=== PATIENT | female | born 1995 ===

== ENCOUNTER 2018-02-15 22:03 | Emergency (ER) | payer OTHER ==
[2018-02-15 22:55] VITALS: BP 141/90; PULSE 92; RESP 18; TEMP 98.2; O2SAT 99
--- NOTE | 2018-02-16 00:16 | ED PDOC ---
HPI: Psych/Substance Abuse Time Seen by Provider: 02/15/18 23:38 Chief Complaint (Nursing): Psychiatric Evaluation History Per: Patient Additional Complaint(s): Pt. states yesterday she found out her aunt was diagnosed a "mass" and today her mother informed her that her grandmother will now be wheelchair bound. Also states she has been studying for mid-terms and has felt "helpless" and overwhelmed. Reports a hx of depression and states she used to take meds but has not taken any meds in several months. Further reports she was admitted into the hospital for depression when she was in high school. Denies SI/HI, hallucinations, chest pain, palpitations. Past Medical History Reviewed: Historical Data, Nursing Documentation, Vital Signs Vital Signs: Last Vital Signs Temp 98.2 F 02/15/18 22:52 Pulse 92 H 02/15/18 22:52 Resp 18 02/15/18 22:52 BP 141/90 02/15/18 22:52 Pulse Ox 99 02/15/18 22:52 - Family History Family History: States: No Known Family Hx - Home Medications Home Medications: Ambulatory Orders Medication Instructions Recorded Spironolactone [Aldactone] 25 mg PO BID 02/16/18 - Allergies Allergies/Adverse Reactions: Allergies Allergy/AdvReac Type Severity Reaction Status Date / Time Penicillins Allergy RASH Verified 02/15/18 22:55 Review of Systems ROS Statement: Except As Marked, All Systems Reviewed And Found Negative Physical Exam - Physical Exam Appears: Positive for: Well, Non-toxic, No Acute Distress Skin: Positive for: Normal Color, Warm. Negative for: Rash Eye Exam: Positive for: Normal appearance ENT: Positive for: Normal ENT Inspection Neck: Positive for: Normal, Painless ROM Cardiovascular/Chest: Positive for: Regular Rate, Rhythm. Negative for: Tachycardia Respiratory: Positive for: CNT, Normal Breath Sounds Gastrointestinal/Abdominal: Positive for: Normal Exam, Soft. Negative for: Tenderness Neurologic/Psych: Positive for: Alert, Oriented, Mood/Affect (calm, cooperative) - ECG O2 Sat by Pulse Oximetry: 99 - Progress ED Course And Treament: Pt. evaluated by Alivia, community organization worker, who spoke with Dr. Stephens and cleared pt. for discharge. Outpt. f/u arranged by Alivia. Disposition - Clinical Impression Clinical Impression: Depression - Patient ED Disposition Is Patient to be Admitted: No - Disposition Disposition: Routine/Home Disposition Time: 00:34 Condition: STABLE Instructions: Depression, Adult (DC) Forms: [employer] (Argentine), [facility] ED School/Work Excuse Print Language: HEBREW
== END 2018-02-16 00:53 | disposition home or self-care (01) ==
LOC: H.ER 22:03
DX: F32.9 Major depressive disorder, single episode, unspecified (principal); Z88.0 Allergy status to penicillin

== ENCOUNTER 2018-07-13 18:10 | Emergency (ER) | payer OTHER ==
[2018-07-13 18:23] VITALS: BP 123/84; PULSE 86; RESP 19; O2SAT 98
--- NOTE | 2018-07-13 18:47 | ED PDOC ---
Lower Extremity Pain/Injury Time Seen by Provider: 07/13/18 18:25 Chief Complaint (Nursing): Lower Extremity Problem/Injury Chief Complaint (Provider): Left Foot Pain History Per: Patient History/Exam Limitations: no limitations Onset/Duration Of Symptoms: Days Current Symptoms Are (Timing): Still Present Additional Complaint(s): 22 year old female presents to the ED for an evaluation of left foot pain. Patient states she tripped yesterday and was seen by the nurse on campus. She was told that if the pain persisted she should visit the ED. Patient denies any prior fracture. PMD: No Family Provider Past Medical History Reviewed: Historical Data, Nursing Documentation, Vital Signs Vital Signs: Last Vital Signs Temp Pulse 86 07/13/18 18:20 Resp 19 07/13/18 18:20 BP 123/84 07/13/18 18:20 Pulse Ox 98 07/13/18 18:20 - Medical History PMH: Denies: Diabetes, Hepatitis, HIV, HTN, Seizures, Sexually Transmitted Disease - Family History Family History: States: Unknown Family Hx - Home Medications Home Medications: Ambulatory Orders Medication Instructions Recorded Spironolactone [Aldactone] 25 mg PO BID 02/16/18 Ibuprofen [Motrin] 600 mg PO Q8 PRN #21 tab 07/13/18 - Allergies Allergies/Adverse Reactions: Allergies Allergy/AdvReac Type Severity Reaction Status Date / Time Penicillins Allergy RASH Verified 02/15/18 22:55 Review of Systems ROS Statement: Except As Marked, All Systems Reviewed And Found Negative Musculoskeletal: Positive for: Foot Pain (left) Physical Exam - Reviewed Nursing Documentation Reviewed: Yes Vital Signs Reviewed: Yes - Physical Exam Appears: Positive for: Non-toxic, No Acute Distress Head Exam: Positive for: ATRAUMATIC, NORMAL INSPECTION, NORMOCEPHALIC Skin: Positive for: Normal Color, Warm, Dry Eye Exam: Positive for: Normal appearance Extremity: Positive for: Tenderness (moderate pain to lateral foot pain), Other (ecchymosis). Negative for: Deformity Neurologic/Psych: Positive for: Alert, Oriented (x3). Negative for: Motor/ Sensory Deficits - ECG O2 Sat by Pulse Oximetry: 98 (RA) Pulse Ox Interpretation: Normal - Progress ED Course And Treament: XRY OF FOOT: NO FX XRY OF ANKLE: NO FX AIR CAST TO LEFT ANKLE/CRUTCH INSTRUCTIONS GIVEN. Medical Decision Making Medical Decision Making: Time: 1828 Initial Impression: left foot pain Initial Plan: --Ankle left 3 views [RAD] --foot left 3 views [RAD] --Reevaluation Scribe Attestation: Documented by Jaime Wylie, acting as a scribe for Vince Humphrey PA-C. Provider Scribe Attestation: All medical record entries made by the Scribe were at my direction and personally dictated by me. I have reviewed the chart and agree that the record accurately reflects my personal performance of the history, physical exam, medical decision making, and the department course for this patient. I have also personally directed, reviewed, and agree with the discharge instructions and disposition. Disposition - Clinical Impression Clinical Impression: Left ankle sprain - Patient ED Disposition Is Patient to be Admitted: No - Disposition Referrals: Podiatry Clinic [Outside] Disposition: Routine/Home Disposition Time: 19:01 Condition: FAIR Prescriptions: Ibuprofen [Motrin] 600 mg PO Q8 PRN #21 tab PRN Reason: Pain, Moderate (4-7) Instructions: Ankle Sprain (DC) Forms: [facility] ED School/Work Excuse
--- NOTE | 2018-07-13 18:57 | RAD ---
Date of service: 07/13/2018 PROCEDURE: Left Ankle Radiographs. HISTORY: left ankle pain COMPARISON: None FINDINGS: BONES: No acute fracture. JOINTS: Ankle mortise maintained. Talar dome intact SOFT TISSUES: Lateral malleolar soft tissue swelling. OTHER FINDINGS: None. IMPRESSION: Lateral malleolar soft tissue swelling without demonstrated fracture or dislocation.
--- NOTE | 2018-07-13 18:58 | RAD ---
Date of service: 07/13/2018 PROCEDURE: Left Foot Radiographs. HISTORY: injury COMPARISON: None. FINDINGS: BONES: No acute fracture. JOINTS: Unremarkable. SOFT TISSUES: Normal. OTHER FINDINGS: None. IMPRESSION: No demonstrated fracture or dislocation.
== END 2018-07-13 19:05 | disposition home or self-care (01) ==
LOC: H.ER 18:10
DX: S93.402A Sprain of unspecified ligament of left ankle, initial encounter (principal); W19.XXXA Unspecified fall, initial encounter; Y92.89 Other specified places as the place of occurrence of the external cause; Z88.0 Allergy status to penicillin

== ENCOUNTER 2018-12-10 18:35 | Emergency (ER) | payer OTHER ==
[2018-12-10] MEDS ORDERED: Sodium Chloride 0.9% 1,000 ML IV STA (19:47)
--- NOTE | 2018-12-10 19:56 | ED PDOC ---
HPI: Abdomen Time Seen by Provider: 12/10/18 19:10 Chief Complaint (Nursing): GI Problem Chief Complaint (Provider): GI Problem History Per: Patient History/Exam Limitations: no limitations Onset/Duration Of Symptoms: Days (x1) Current Symptoms Are (Timing): Still Present Additional Complaint(s): 23 y/o female with no significant PMHx presents to the ED for evaluation of vomiting, onset one day ago. Patient reports of developing vomiting that turned into dry heaving. Patient states vomiting/dry heaving is associated with diffuse abdominal pain, nausea and dizziness. Patient states she was able to tolerate a small amount of water that "irritated her stomach). Otherwise, patient denies fever and diarrhea. PMD: no provider Past Medical History Reviewed: Historical Data, Nursing Documentation, Vital Signs Vital Signs: Last Vital Signs Temp 98.4 F 12/10/18 18:51 Pulse 104 H 12/10/18 18:51 Resp 16 12/10/18 18:51 BP 128/89 12/10/18 18:51 Pulse Ox 98 12/10/18 18:51 - Medical History PMH: No Chronic Diseases Denies: Diabetes, Hepatitis, HIV, HTN, Seizures, Sexually Transmitted Disease - Surgical History Surgical History: No Surg Hx - Family History Family History: States: Unknown Family Hx - Home Medications Home Medications: Ambulatory Orders Medication Instructions Recorded RX: Spironolactone [Aldactone] 25 mg PO BID 02/16/18 Ibuprofen [Motrin] 600 mg PO Q8 PRN #21 tab 07/13/18 Ondansetron [Zofran] 4 mg PO Q6H PRN #5 tab 12/11/18 - Allergies Allergies/Adverse Reactions: Allergies Allergy/AdvReac Type Severity Reaction Status Date / Time Penicillins Allergy RASH Verified 12/10/18 18:49 Review of Systems ROS Statement: Except As Marked, All Systems Reviewed And Found Negative Constitutional: Negative for: Fever Gastrointestinal: Positive for: Nausea, Vomiting. Negative for: Diarrhea Neurological: Positive for: Dizziness Physical Exam - Reviewed Nursing Documentation Reviewed: Yes Vital Signs Reviewed: Yes - Physical Exam Appears: Positive for: Uncomfortable Head Exam: Positive for: ATRAUMATIC, NORMOCEPHALIC Skin: Positive for: Normal Color, Warm, Dry Eye Exam: Positive for: Normal appearance, EOMI, PERRL Neck: Positive for: Normal, Painless ROM Cardiovascular/Chest: Positive for: Regular Rate, Rhythm. Negative for: Murmur Respiratory: Positive for: Normal Breath Sounds. Negative for: Respiratory Distress Gastrointestinal/Abdominal: Positive for: Bowel Sounds, Soft, Tenderness (mild lower abdominal tenderness). Negative for: Guarding, Rebound Back: Positive for: Normal Inspection. Negative for: L CVA Tenderness, R CVA Tenderness, Vertebral Tenderness Extremity: Positive for: Normal ROM. Negative for: Deformity Neurologic/Psych: Positive for: Alert, Oriented. Negative for: Motor/Sensory Deficits - Laboratory Results Result Diagrams: 12/10/18 20:10 12/10/18 20:10 - ECG O2 Sat by Pulse Oximetry: 98 (RA) Pulse Ox Interpretation: Normal Medical Decision Making Medical Decision Making: Time: 1947 Plan: abd pain rule out gastroenteritis, uti -- CMP -- Lipase -- CBC with Differentials -- Sodium Chloride IV 999 mls/hr -- Pepcid 20 mg IVP -- Zofran Inj 4 mg IV -- Urine C&S -- Urinalysis Time: 2129 -- On re-evaluation, patient reports no improvement of symptoms. Toradol and CT Abd/Pelvis ordered. -- CT Abd/Pelvis PO & IV Contrast -- Iohexol 50 ml PO -- Toradol [address] Abd/Pelvis PO & IV Contrast FINDINGS: LUNG BASES: The lung bases appear clear. No pleural effusions are seen. LIVER: There is mild perihepatic ascites. GALLBLADDER AND BILE DUCTS: The gallbladder appears within normal limits. No radioopaque gallstones are seen. No biliary ductal dilatation is evident. PANCREAS: Unremarkable. SPLEEN: Unremarkable. ADRENAL GLANDS: Unremarkable. KIDNEYS, URETERS, AND BLADDER: Bladder is decompressed. STOMACH AND BOWEL: There is wall thickening involving the jejunum, with involved bowel loops measuring up to 3.5 centimeters in diameter. There does not appear to be associated bowel obstruction. The finding is most compatible with enteritis. Most likely would have infectious or inflammatory etiology, less likely ischemic or neoplastic. Question mild wall thickening versus underdistention involving the descending and proximal sigmoid colon. If a true finding, this could represent a mild colitis. Please correlate clinically. APPENDIX: No evidence of acute appendicitis on CT examination. PERITONEUM: There is moderate pelvic ascites which measures simple fluid density. LYMPH NODES: No lymphadenopathy is evident. VASCULATURE: No evidence of abdominal aortic aneurysm. BONES: No aggressive appearing osseous lesion. No acute osseous pathology evident. MISCELLANEOUS: The uterus appears unremarkable. IMPRESSION: 1. There is mild perihepatic ascites. 2. There is wall thickening involving the jejunum, with involved bowel loops measuring up to 3.5 centimeters in diameter. There does not appear to be associated bowel obstruction. The finding is most compatible with enteritis. Most likely would have infectious or inflammatory etiology, less likely ischemic or neoplastic. Please correlate clinically. 3. There is moderate pelvic ascites which measures simple fluid density. 4. Question mild wall thickening versus underdistention involving the descending and proximal sigmoid colon. If a true finding, this could represent a mild colitis. Please correlate clinically. 0128 Upon reevaluation, patient is medically stable for discharge with a prescription of Zofran and instructions for outpatient followup. Scribe Attestation: Documented by Jhon Pérez, acting as a scribe for Selina Weiss MD. Provider Scribe Attestation: All medical record entries made by the Scribe were at my direction and personally dictated by me. I have reviewed the chart and agree that the record accurately reflects my personal performance of the history, physical exam, medical decision making, and the department course for this patient. I have also personally directed, reviewed, and agree with the discharge instructions and disposition. Disposition - Clinical Impression Clinical Impression: Enteritis - Patient ED Disposition Is Patient to be Admitted: No - Disposition Referrals: [facility] [Outside] [facility] [Outside] Disposition: Routine/Home Disposition Time: 01:28 Condition: IMPROVED Additional Instructions: follow up with the clinic within one week return to the ED with any worsening or concerning symptoms Prescriptions: Ondansetron [Zofran] 4 mg PO Q6H PRN #5 tab PRN Reason: Nausea/Vomiting Instructions: Viral Gastroenteritis, Adult (DC) Forms: [employer] (Persian), [facility] ED School/Work Excuse
[2018-12-10 20:15] LABS: BASO # 0.1 K/uL (0.0-0.2); BASO % 0.6 % (0.0-2.0); HEMOGLOBIN 13.2 g/dL (12.0-16.0); LYMPH # 1.9 K/uL (1.0-4.3); LYMPH % 17.7 % (20.0-40.0); MEAN CELL VOLUME 78.7 fl (81.0-99.0); MEAN CORPUSCULAR HEMOGLOBIN 25.6 pg (27.0-31.0); MEAN CORPUSCULAR HGB CONC 32.5 g/dL (33.0-37.0); MEAN PLATELET VOLUME 8.2 fl (7.2-11.7); MONO # 0.5 K/uL (0.0-0.8); MONO % 4.6 % (0.0-10.0); NEUT # 8.4 K/uL (1.8-7.0); NEUT % 77.1 % (50.0-75.0); RBC 5.17 Mil/uL (3.80-5.20); WHITE BLOOD COUNT 10.8 K/uL (4.8-10.8)
[2018-12-10 20:19] LABS: SQUAMOUS EPITHIAL 5 /hpf (0-5); URINE BACTERIA RARE (<OCC); URINE BILIRUBIN NEGATIVE (NEGATIVE); URINE BLOOD NEGATIVE (NEGATIVE); URINE CLARITY CLOUDY (Clear); URINE COLOR YELLOW (YELLOW); URINE GLUCOSE (UA) NEG (NEGATIVE); URINE LEUKOCYTE ESTERASE NEG Leu/uL (Negative); URINE PROTEIN 30 mg/dL (NEGATIVE)
[2018-12-10 20:26] LABS: ALB/GLOB RATIO 1.1 (1.0-2.1); ALT/SGPT 23 U/L (9-52); AST/SGOT 18 U/L (14-36); BLOOD UREA NITROGEN 9 mg/dl (7-17); CALCIUM 9.3 mg/dL (8.4-10.2); GFR NON-AFRICAN AMERICAN > 60; LIPASE 23 U/L (23-300)
[2018-12-10] MEDS ORDERED: Iohexol 240 (50 ml) PO ONE (21:30)
[2018-12-10] MEDS ORDERED: Iohexol 240 (50 ml) ONE (21:49)
[2018-12-10] MEDS ORDERED: Iohexol 300 100 ML IJ ONE (23:20)
[2018-12-10] MEDS ORDERED: Sodium Chloride 0.9% 50 ML IV ONE (23:21)
[2018-12-11 01:48] VITALS: BP 135/86; PULSE 83; RESP 18; TEMP 97.9
[2018-12-11 05:16] VITALS: O2SAT 98
--- NOTE | 2018-12-11 10:03 | CT ---
Date of service: 12/10/2018 PROCEDURE: CT Abdomen and Pelvis with contrast HISTORY: abd pain COMPARISON: None. TECHNIQUE: Following oral and intravenous contrast administration, a CT examination of the abdomen and pelvis was performed from the domes of the diaphragms to the symphysis pubis with reformatted datasets provided not only axial but also sagittal and coronal series. Contrast dose: Omnipaque 300, 90 cc Radiation dose: Total exam DLP = 606.39 mGy-cm. This CT exam was performed using one or more of the following dose reduction techniques: Automated exposure control, adjustment of the mA and/or kV according to patient size, and/or use of iterative reconstruction technique. FINDINGS: LOWER THORAX: Unremarkable. LIVER: Trace perihepatic ascites appreciate with liver otherwise unremarkable appearing. No mass or intrahepatic biliary dilatation is identified. GALLBLADDER AND BILE DUCTS: Unremarkable. PANCREAS: Unremarkable. No gross lesion or ductal dilatation. SPLEEN: Unremarkable. ADRENALS: Unremarkable. No mass. KIDNEYS AND URETERS: Unremarkable. No hydronephrosis. No solid mass. VASCULATURE: Unremarkable. No aortic aneurysm. No aortic atherosclerotic calcification or mural plaque present. BOWEL: No bowel obstruction is appreciate however there is marked mural thickening affecting proximal jejunum which is partially opacified by oral contrast material. Local perienteric reactive changes are appreciated and limited pelvic ascites is felt to be associated in the pattern is felt to be reflective of segmental due to jejunitis of indeterminate etiology but likely infectious or inflammatory. Clinically correlate as ischemia is not completely excluded but is not favored. Normal opacification of the superior mesenteric artery and celiac artery is appreciated. The abdominal aorta is widely patent. : Appears grossly nonfocal though distal segment is nearly completely collapsed. APPENDIX: Not clearly identified. No definite CT evidence to suggest appendicitis at this time. PERITONEUM: See bowel section above. LYMPH NODES: No significant lymphadenopathy. BLADDER: Unremarkable. REPRODUCTIVE: Unremarkable. BONES: No acute fracture. OTHER FINDINGS: None. IMPRESSION: 1. Segmental enteritis affecting proximal to mid jejunum without abscess or free intra peritoneal gas collection. Mild perihepatic and pelvic ascites is identified likely related. Consider infectious or inflammatory causes primarily. Further clinical correlation as. 2. Remainder of the examination appears unremarkable. Preliminary report provided by Sadie, 12/11/2018, 12:17 a.m..
== END 2018-12-11 01:54 | disposition home or self-care (01) ==
LOC: H.ER 18:35
DX: K52.9 Noninfective gastroenteritis and colitis, unspecified (principal); Z79.899 Other long term (current) drug therapy; Z88.0 Allergy status to penicillin
CPT/HCPCS: 74177; 80053; 81003; 81025; 83690; 85025; 87086; 96361; 96374; 96375; 99284; J1885; J2405; J7030; Q9966; Q9967